=== PATIENT | male | born 1965 | race Caucasian/White ===

== ENCOUNTER 2016-07-13 13:00 | Emergency (ER) | payer OTHER, MEDICARE ==
[~2016-07-13] VITALS: Ht 205.7 cm; Wt 114.8 kg
[~2016-07-13 13:00] MED LIST: COUMADIN 5 MG TA5 MG PO; DILTIAZEM ER120 MG PO; DOCUSATE SODIU100 MG PO; PERCOCET 325 MG1 TA2 PO; RESTORIL15 MG PO; SENNA CON/DOCUS1 TAB PO; VICODIN5-300 PO
--- NOTE | 2016-07-13 13:24 | ED UPPER/LOWER EXTREMITY COMPL ---
History of Present Illness General Chief Complaint: Lower Extremity Injury Stated Complaint: KNEE PAIN Source: patient Exam Limitations: no limitations Vital Signs & Intake/Output Vital Signs & Intake/Output Vital Signs Date Time Temp Pulse Resp B/P Pulse O2 O2 Flow FiO2 Ox Delivery Rate 07/13 1446 96.9 76 16 149/74 97 Room Air 07/13 1334 Room Air 07/13 1309 96.3 83 18 144/84 100 Room Air Room Air Allergies Coded Allergies: NO KNOWN ALLERGIES (07/13/16) Reconcile Medications DILTIAZEM HCL (Diltiazem ER) 120 MG CAP.ER.DEG 240 MG PO DAILY BLOOD PRESSURE (Reported) Oxycodone HCl/Acetaminophen (Percocet 5-325 MG Tablet) 5 MG-325 MG TABLET 1-2 TAB PO Q6P PRN PAIN Sertraline HCl 100 MG TABLET 1 TAB PO DAILY DEPRESSION (Reported) Triage Note: TRIAGEl: 50 Y/O MALE PRESENTS S/P FALL 1.5 HOURS PRIOR TO ARRIVAL. REPORTS DROVE SELF TO DEPARTMENT. UNABLE TO ASSESS KNEE IN TRIAGE. PT DECLINES TYLENOL OR MOTRIN IN TRIAGE SECONDARY TO NO LUNCH AT THIS TIME. Triage Nurses Notes Reviewed? yes Onset: Abrupt Duration: day(s):, constant Timing: recent history Severity: moderate, severe Pain/Injury Location: Right: Knee. No Modifying Factors: none HPI: 42-year-old male comes into emergency room with complaints of right knee pain has been going on for the past few hours. Patient reports that his leg went to the floor in his leg twisted. Patient is having pain to his right knee with associated swelling. Sharp pain. Continuous. Denies any head trauma neck pain. Denies any injury anywhere else on his body. Denies any other associated symptoms. (LORENA COTO) Past History Travel History Traveled to [place] past 21 day No Medical History Any Pertinent Medical History? see below for history Cardiovascular: hypertension History of MRSA: No History of VRE: No History of CDIFF: No Surgical History Surgical History: non-contributory Psychosocial History Who do you live with Brother What is your primary language Greek Tobacco Use: Never used ETOH Use: denies use Illicit Drug Use: denies illicit drug use Family History Family History, If Any: Relation not specified for: *No pertinent family history Hx Contributory? No (LORENA COTO) Review of Systems Review of Systems Constitutional: Reports: no symptoms. EENTM: Reports: no symptoms. Respiratory: Reports: no symptoms. Cardiovascular: Reports: no symptoms. Gastrointestinal/Abdominal: Reports: no symptoms. Genitourinary: Reports: no symptoms. Musculoskeletal: Reports: see HPI. Skin: Reports: no symptoms. Neurological/Psychological: Reports: no symptoms. Hematologic/Endocrine: Reports: no symptoms. Immunological: Reports: no symptoms. All Other Systems: Reviewed and Negative (LORENA COTO) Physical Exam Physical Exam General Appearance: well developed/nourished, mild distress Head: atraumatic Eyes: Bilateral: normal appearance. Ears, Nose, Throat: normal ENT inspection, hearing grossly normal Neck: normal inspection Cardiovascular/Respiratory: no respiratory distress Back: normal inspection Knee Right: swelling, tenderness, soft tissue tenderness, limited range of motion Foot Right: normal inspection, normal range of motion Neurologic/Tendon: normal sensation, normal motor functions, normal tendon functions, responds to pain, no evidence tendon injury, no pulse deficit Skin: intact, normal color, warm/dry Lymphatic: no anterior cervical ladan (LORENA COTO) Progress Differential Diagnosis: contusion, dislocation, fracture, gout, septic arthritis , sprain, tendon injury Plan of Care: Orders Procedure Date/time Status Durable Medical Equipment 07/13 1515 Active Diagnostic Imaging: Viewed by Me: Radiology Read. Discussed w/RAD: Radiology Read. Radiology Impression: SERVICE DATE: 07/13/16 EXAM TYPE: RAD - XRY-KNEE COMPLETE RIGHT EXAMINATION: XR KNEE, RIGHT CLINICAL INFORMATION: Trauma to the knee COMPARISON: Right knee 03/15/2014 TECHNIQUE: 4 views. FINDINGS: Moderate volume suprapatellar knee joint effusion. No air in the soft tissue and no radiopaque foreign body. No fracture or dislocation. The femoral tibial joint is not well seen. Knee is held in slight flexion. The patellofemoral joint is normal. There is a bony exostosis, osteochondroma, at the metaphysis of the proximal tibia at the medial side of the bone unchanged since prior exam. IMPRESSION: No acute osseous abnormality. Moderate volume joint effusion. DICTATED BY: FRANCIA PATTERSON MD DATE/TIME DICTATED:07/13/161451 COMPO CONVEYOR OPERATOR :KAI DATE/TIME TRANSCRIBED:07/13/161451 CONFIDENTIAL, DO NOT COPY WITHOUT APPROPRIATE AUTHORIZATION. Comments: 07/13/2016 3:29:37 PM Exam is limited secondary to the fact the patient is in pain and swelling. Patient referred to orthopedic doctor. Return if any other concerns. (LORENA COTO) Departure Departure Disposition: HOME OR SELF CARE Condition: Stable Clinical Impression Primary Impression: Right knee sprain Referrals: MARILOU ALEXANDER,ASHUTOSH (PCP/Family) JULIO MARTINEZ MD Additional Instructions: Ice. Rest. Motrin. Percocet for pain as needed. Departure Forms: Customer Survey General Discharge Information Prescriptions: Current Visit Scripts Oxycodone HCl/Acetaminophen (Percocet 5-325 MG Tablet) 1-2 TAB PO Q6P PRN PAIN #15 TAB (LORENA COTO) PA/NIGHT CLEANER Co-Sign Statement Statement: ED Attending supervision documentation- [] I saw and evaluated the patient. I have also reviewed all the pertinent lab results and diagnostic results. I agree with the findings and the plan of care as documented in the PA's/NIGHT CLEANER's documentation. [X] I have reviewed the ED Record and agree with the PA's/NIGHT CLEANER's documentation. [] Additions or exceptions (if any) to the PAs/NIGHT CLEANER's note and plan are summarized below: [] (NEW ALEXANDER,ROBBI Schwarz) Procedures Splinting Location: Right knee Pre-Made Type: knee imobilizer Splint Applied By: splint applied by me Pre-Proc Neuro Vasc Exam: normal Post-Proc Neuro Vasc Exam: normal (LORENA COTO)
[2016-07-13] MEDS ORDERED: SERTRALINE HCL100 MG PO (14:28)
--- NOTE | 2016-07-13 15:00 | RADIOLOGY REPORT ---
EXAMINATION: XR KNEE, RIGHT CLINICAL INFORMATION: Trauma to the knee COMPARISON: Right knee 03/15/2014 TECHNIQUE: 4 views. FINDINGS: Moderate volume suprapatellar knee joint effusion. No air in the soft tissue and no radiopaque foreign body. No fracture or dislocation. The femoral tibial joint is not well seen. Knee is held in slight flexion. The patellofemoral joint is normal. There is a bony exostosis, osteochondroma, at the metaphysis of the proximal tibia at the medial side of the bone unchanged since prior exam. IMPRESSION: No acute osseous abnormality. Moderate volume joint effusion.
[2016-07-13] MEDS ORDERED: PERCOCET 5-3251 EACH PO (15:19)
[2016-07-13 16:08] VITALS: BP 142/76
== END 2016-07-13 16:27 ==
LOC: ERH 13:00
DX: S83.91XA Sprain of unspecified site of right knee, initial encounter (principal); W19.XXXA Unspecified fall, initial encounter
CPT/HCPCS: 73562-RT